=== PATIENT | female | born 1955 | race Hispanic/Latino ===

== ENCOUNTER 2018-06-02 09:59 | Emergency (ER) | payer OTHER, MEDICARE ==
--- NOTE | 2018-06-02 10:25 | ED UPPER/LOWER EXTREMITY COMPL ---
History of Present Illness General Chief Complaint: Upper Extremity Injury Stated Complaint: R ARM INJURY Source: patient, family Exam Limitations: language barrier Vital Signs & Intake/Output Vital Signs & Intake/Output Vital Signs Date Time Temp Pulse Resp B/P B/P Pulse O2 O2 Flow FiO2 Mean Ox Delivery Rate 06/02 1359 83 14 119/58 95 Room Air 06/02 1345 79 18 123/58 97 Room Air 06/02 1330 98.0 78 16 122/57 99 Nasal 1.0L Cannula 06/02 1318 97.5 92 16 136/61 99 Nasal 2.0L Cannula 06/02 1214 97.5 71 18 136/67 95 Room Air 06/02 1010 97.6 60 16 113/74 98 Room Air Allergies Coded Allergies: No Known Allergies (06/02/18) Reconcile Medications Aspirin (Aspirin*) 81 MG TAB.CHEW 1 TAB PO DAILY HEART HEALTH (Reported) Oxycodone HCl/Acetaminophen (Percocet 5-325 MG Tablet) 5 MG-325 MG TABLET 1 TAB PO BID PRN SHOULDER DISLOCATION Triage Note: PT TO ED WITH RT SHOULDER PAIN. STATES THAT SHE WAS REACHING FOR SOMETHING IN A CABINET STANDING ON A STOOL WHEN SHE FELL OFF AND ARM HIT COUNTER. 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 ICE PACK IN PLACE. +CMS. ?DEFORIMITY. Triage Nurses Notes Reviewed? yes Onset: Abrupt Duration: constant Timing: single episode today Severity: severe Severity Numbers: 7 HPI: Patient is a 62-year-old female who presents emergency room with son in which history is limited however son states that patient was standing on a stool in her kitchen the stool slipped out underneath her or patient then landed on her right axilla region without stretching and resulting acute onset of right localized shoulder pain and patient is unable to move the arm since. Patient is right arm dominant. Denies any head strike Denies any neck or back pain wrist or elbow pain. (Con Bella) Past History Travel History Traveled to [place] past 21 day No Medical History Any Pertinent Medical History? see below for history Neurological: ANEURYSM Surgical History Surgical History: non-contributory Psychosocial History What is your primary language Mexican Tobacco Use: Never used Family History Hx Contributory? No (Con Bella) Review of Systems Review of Systems Constitutional: Reports: no symptoms. EENTM: Reports: no symptoms. Respiratory: Reports: no symptoms. Cardiovascular: Reports: no symptoms. Gastrointestinal/Abdominal: Reports: no symptoms. Genitourinary: Reports: no symptoms. Musculoskeletal: Reports: see HPI, joint pain. Skin: Reports: no symptoms. Neurological/Psychological: Reports: no symptoms. Hematologic/Endocrine: Reports: no symptoms. Immunological: Reports: no symptoms. All Other Systems: Reviewed and Negative (Con Bella) Physical Exam Physical Exam General Appearance: mild distress Head: atraumatic Eyes: Bilateral: normal appearance. Ears, Nose, Throat: hearing grossly normal Neck: normal inspection, full range of motion, no midline tenderness Cardiovascular/Respiratory: no respiratory distress Peripheral Pulses: 2+ radial (R) Back: no vertebral tenderness Neurologic/Tendon: normal sensation, responds to pain, no evidence tendon injury , no pulse deficit Skin: intact, normal color, warm/dry Comments: Right shoulder noted sulcus sign in general has point tenderness noted range of motion Right elbow normal inspection nontender Right wrist normal inspection nontender Right upper extremity dermatomes intact radial pulse +2, capillary refill less than 2 seconds (Con Bella) Progress Differential Diagnosis: arterial insufficiency, compartment syndrome, contusion, dislocation, DVT, fracture, gout, septic arthritis, sprain, tendon injury Plan of Care: Orders Procedure Date/time Status Durable Medical Equipment 06/02 1446 Active Patient on initial presentation has intact neurovascular of the right upper extremity Due to history of present illness and exam findings there is consideration of right shoulder dislocation X-rays confirm dislocation with no signs of fracture Patient was given IV morphine with mild improvement of pain then traction countertraction reduction was performed after multiple attempts that was unsuccessful then discussed with patient that conscious sedation will be performed patient was understanding of the risk and benefit of this patient last ate yesterday Etomidate and fentanyl was administered after 1 attempt of reduction using traction countertraction the reduction was successful neurovascular was intact x -rays confirmed reduction It is noted to me by nursing staff the patient had episodes of vomiting Zofran was administered however patient upon discharge did up and had another episode of vomiting IM Reglan was administered. Patient had resolution of nausea upon discharge patient looks well no apparent distress and will comply with discharge instructions and had no questions. Diagnostic Imaging: Viewed by Me: Radiology Read. Radiology Impression: acute abnormality Comments: PATIENT: ALIZA YEBOAH PRESENT AGE: 62 PATIENT ACCOUNT NO: [id number] : 55 LOCATION: [facility] ORDERING PHYSICIAN: Con LUGO SERVICE DATE: 06/02/18 EXAM TYPE: RAD - XRY-SHOULDER COMPLETE-RIGHT EXAMINATION: XR SHOULDER, RIGHT CLINICAL INFORMATION: Status post shoulder reduction COMPARISON: None TECHNIQUE: Two views of the right shoulder. FINDINGS: The humeral head is now properly positioned over the glenoid. There is mild flattening of the posterolateral aspect of the humeral head (i.e., Hill-Sachs deformity). No evidence of an osseous Bankart lesion. The right clavicle and acromioclavicular joint are unremarkable. The visualized right lung is normal. IMPRESSION: Interval successful reduction of the previously noted glenohumeral dislocation. DICTATED BY: John Leach MD DATE/TIME DICTATED:06/02/181348 ABATEMENT WORKER:TO DATE/TIME TRANSCRIBED:06/02/181348 CONFIDENTIAL, DO NOT COPY WITHOUT APPROPRIATE AUTHORIZATION. <Electronically signed in Other Vendor System> SIGNED BY: John Leach MD 06/02/18 1358 PATIENT: ALIZA YEBOAH PRESENT AGE: 62 PATIENT ACCOUNT NO: [id number] : 55 LOCATION: [facility] ORDERING PHYSICIAN: Con LUGO SERVICE DATE: 06/02/18 EXAM TYPE: RAD - XRY-SHOULDER COMPLETE-RIGHT EXAMINATION: XR SHOULDER, RIGHT CLINICAL INFORMATION: Deformity. COMPARISON: None TECHNIQUE: Right shoulder, 3 views FINDINGS: The humeral head is anteroinferiorly dislocated into a subcoracoid position. No osseous Bankart lesion. The visualized clavicle and acromioclavicular joint are normal. IMPRESSION: There is anteroinferior dislocation of the humeral head. DICTATED BY: John Leach MD DATE/TIME DICTATED:06/02/181126 ABATEMENT WORKER:TO DATE/TIME TRANSCRIBED:06/02/181126 (Con Bella) Departure Departure Disposition: HOME OR SELF CARE Condition: Stable Clinical Impression Primary Impression: Dislocation of right shoulder joint Additional Instructions: As discussed begin using the shoulder immobilizer placed onto in the emergency room at all Times until you follow up with the orthopedic doctor, tomorrow please follow up and establish with. Dr. Moffett for further evaluation treatment, begin icing 20 minutes every 2 hours begin ibuprofen for pain and Percocet for breakthrough pain relief. If symptoms worsen return to emergency room Prescriptions waiting at [facility] Departure Forms: Customer Survey General Discharge Information Prescriptions: Current Visit Scripts Oxycodone HCl/Acetaminophen (Percocet 5-325 MG Tablet) 1 TAB PO BID PRN SHOULDER DISLOCATION #8 TAB (Con Bella) Departure Comments 06/02/18 I've seen and personally examined the patient and I agree with the PAs evaluation. She was seen in the emergency department status post fall with a right anterior shoulder dislocation. Under my direct supervision moderate sedation was performed and the shoulder was reduced. Postreduction films were adequate. She was placed in a splint and discharged. She did vomit postprocedure. This was well after she was awake and alert. No clinical suspicion of aspiration. (Kane Romero DO) Procedures Joint Reduction Joint Reduction Site: shoulder (R) Conscious Sedation: conscious sedation Reduction Attempts: 5 Pre-Procedure NV Exam: Yes Post-Procedure NV Exam: Yes Post Joint Reduction Film: no fracture seen Procedural Sedation Sedation Type: moderate Indication: RIGHT SHOULDER REDUCTION Prior Complications: procedural sedation ASA Classification: P1 Airway: normal anatomy Mallampati Classification: Class 2 Preparation: plan explained to patient, hospital consent signed, oximetry during procedure, IV access obtained, suction immediately avail, jewel bearing facer used Sedation: etomidate Complications During/After Procedure: vomiting (AFTER) Post Sedation Score: see sedation record I personally performed: sedation, procedure Intra-Service Time: 30 minutes or less (Con Bella)
[2018-06-02] MEDS ORDERED: ASPIRIN81 M4 PO (11:12)
--- NOTE | 2018-06-02 11:32 | RADIOLOGY REPORT ---
EXAMINATION: XR SHOULDER, RIGHT CLINICAL INFORMATION: Deformity. COMPARISON: None TECHNIQUE: Right shoulder, 3 views FINDINGS: The humeral head is anteroinferiorly dislocated into a subcoracoid position. No osseous Bankart lesion. The visualized clavicle and acromioclavicular joint are normal. IMPRESSION: There is anteroinferior dislocation of the humeral head.
--- NOTE | 2018-06-02 13:55 | RADIOLOGY REPORT ---
EXAMINATION: XR SHOULDER, RIGHT CLINICAL INFORMATION: Status post shoulder reduction COMPARISON: None TECHNIQUE: Two views of the right shoulder. FINDINGS: The humeral head is now properly positioned over the glenoid. There is mild flattening of the posterolateral aspect of the humeral head (i.e., Hill-Sachs deformity). No evidence of an osseous Bankart lesion. The right clavicle and acromioclavicular joint are unremarkable. The visualized right lung is normal. IMPRESSION: Interval successful reduction of the previously noted glenohumeral dislocation.
[2018-06-02 13:59] VITALS: BP 119/58
[2018-06-02] MEDS ORDERED: PERCOCET 5-3251 EACH PO (14:22)
== END 2018-06-02 16:01 ==
LOC: ERH 09:59
DX: S43.004A Unspecified dislocation of right shoulder joint, initial encounter (principal); W17.89XA Other fall from one level to another, initial encounter
CPT/HCPCS: 73030-RT; 96372; 96374; 96375; 96376; J2310; J2405; J2765